=== PATIENT | female | born 1945 | race Caucasian/White ===

== ENCOUNTER → 2018-04-26 15:27 | Outpatient (REF) | payer MEDICARE, SELFPAY ==
[2018-04-30 19:17] LABS: Fecal Immunochemical Test NOT DETECTED (NOT DETECTED)
== END ==
LOC: LAB 15:27
DX: Z12.11 Encounter for screening for malignant neoplasm of colon (principal)
CPT/HCPCS: 82274

== ENCOUNTER → 2022-08-11 14:12 | Outpatient (CLI) | payer MEDICARE, SELFPAY | PROVIDERS: PCP Family Medicine; Referring Provider Family Medicine; Visit Provider Family Medicine | DX: R20.0 Anesthesia of skin (principal); R20.2 Paresthesia of skin | CPT/HCPCS: 95886; 95909 ==